=== PATIENT | male | born 1985 | race Caucasian/White ===

== ENCOUNTER 2023-09-07 08:30 | Inpatient (IN) | payer OTHER ==
[2023-09-07 09:08] VITALS: BMI 25.7
[2023-09-07] MEDS ORDERED: DICYCLOMINE HCL 10 MG CAPSULE PO PRN (09:56)
[2023-09-07] MEDS ORDERED: MAG HYDROX/AL HYDROX/SIMETH 30 ML UNIT-DOSE CUP PO PRN (09:56)
[2023-09-07] MEDS ORDERED: NALOXONE HCL (KLOXXADO) 8 MG SPRAY NS PRN (09:56)
[2023-09-07] MEDS ORDERED: BENZONATATE 200 MG CAPSULE PO PRN (09:56)
[2023-09-07] MEDS ORDERED: ONDANSETRON *ODT* 4 MG TABLET SL PRN (09:56)
[2023-09-07] MEDS ORDERED: NALOXONE HCL 0.4 MG/ML VIAL IM PRN (09:56)
[2023-09-07] MEDS ORDERED: BENZOCAINE/MENTHOL (CHLORASEPTIC ) LOZENGE MM PRN (09:56)
[2023-09-07] MEDS ORDERED: ACETAMINOPHEN 325 MG TABLET (FP) PO PRN (09:56)
[2023-09-07] MEDS ORDERED: POLYETHYLENE GLYCOL (HEALTHYLAX) 3350 17 GM PACKET PO PRN (09:56)
[2023-09-07] MEDS ORDERED: guaiFENesin 600 MG TABLET.ER (FP) PO PRN (09:56)
[2023-09-07] MEDS ORDERED: MAGNESIUM HYDROX 2400MG/30ML ORAL SUSPENSION 30 ML CUP PO PRN (09:56)
[2023-09-07] MEDS ORDERED: IBUPROFEN 400 MG TABLET (FP) PO PRN (09:56)
[2023-09-07] MEDS ORDERED: PRENATAL VITAMINS W/ FOLIC ACID TABLET (FP) PO ONE (10:28)
[2023-09-07] MEDS ORDERED: methaDONE HCL 10 MG TABLET (FOR DETOX USE ONLY) ONE (10:28)
[2023-09-07] MEDS ORDERED: NICOTINE 21 MG/24 HOURS TOPICAL PATCH ONE (10:28)
[2023-09-07] MEDS: PRENATAL VITAMINS W/ FOLIC ACID TABLET (FP) PO SCH (10:34)
[2023-09-07] MEDS: cloNIDine HCL 0.1 MG TABLET PO SCH (10:34)
[2023-09-07] MEDS: NICOTINE 21 MG/24 HOURS TOPICAL PATCH TD SCH (10:34)
[2023-09-07] MEDS: methaDONE HCL 10 MG TABLET (FOR DETOX USE ONLY) PO ONE (10:34)
[2023-09-07] MEDS: IBUPROFEN 600 MG TABLET (FP) PO PRN (14:48)
[2023-09-07] MEDS: METHOCARBAMOL 500 MG TABLET PO PRN (14:48)
[2023-09-07] MEDS: BISMUTH SUBSALICYLATE 262 MG/15 ML BTL PO PRN (14:50)
[2023-09-07 15:38] LABS: HIV INTERPRETATION NEGATIVE (NEGATIVE)
[2023-09-07] MEDS: LOPERAMIDE HCL 2 MG CAPSULE PO PRN (17:25)
[2023-09-07] MEDS: hydrOXYzine PAMOATE 25 MG CAPSULE (FP) PO PRN (17:25)
[2023-09-07] MEDS: NICOTINE POLACRILEX 4 MG LOZENGE BC PRN (17:26)
[2023-09-07] MEDS: BUPRENORPHINE/NALOXONE 0.5 MG/0.125 MG FILM SL ONE (22:24)
[2023-09-07] MEDS: THIAMINE 100 MG TABLET PO SCH (22:25)
[2023-09-07] MEDS: MELATONIN 5 MG TABLETS PO SCH (22:25)
[2023-09-08] MEDS: BUPRENORPHINE/NALOXONE 0.5 MG/0.125 MG FILM SL SCH (09:31)
[2023-09-08] MEDS: NICOTINE POLACRILEX 2 MG LOZENGE BC PRN (09:32)
[2023-09-08 11:57] LABS: HEMATOCRIT 36.5 % (35.4-49); HEMOGLOBIN 12.2 GM/dL (11.7-16.9); MCH 28.7 pg (25.7-33.7); MCHC 33.3 g/dl (32.0-35.9); MEAN PLT VOLUME 8.3 fl (7.5-11.1); PLATELET COUNT 292 10^3/uL (134-434); RBC 4.24 M/mm3 (4.00-5.60); RDW 14.4 % (11.9-15.9); WHITE BLOOD COUNT 7.5 K/mm3 (4.0-10.0)
[2023-09-08 12:00] LABS: POTASSIUM 3.9 mmol/L (3.5-5.1)
[2023-09-08 12:09] LABS: ALBUMIN 3.8 g/dl (3.4-5.0); BLOOD UREA NITROGEN 26.1 mg/dL (7-18)
[2023-09-08 12:10] LABS: CALCIUM 9.7 mg/dL (8.5-10.1)
[2023-09-08 12:13] LABS: CREATININE 1.2 mg/dL (0.55-1.3)
[2023-09-08 12:14] LABS: BILIRUBIN,TOTAL 0.4 mg/dL (0.2-1)
[2023-09-09] MEDS: methaDONE HCL 10 MG TABLET (FOR DETOX USE ONLY) PO ONE (09:50)
[2023-09-09] MEDS: BUPRENORPHINE/NALOXONE 2 MG/0.5 MG FILM PACKET SL SCH (09:51)
[2023-09-10] MEDS: BUPRENORPHINE/NALOXONE 4 MG/1 MG FILM PACKET SL SCH (09:08)
[2023-09-10] MEDS: MELATONIN 5 MG TABLETS PO SCH (22:31)
[2023-09-11 08:53] VITALS: BP 151/72; PULSE 62; RESP 16; TEMP 97.1
[2023-09-11] MEDS: methaDONE HCL 10 MG TABLET (FOR DETOX USE ONLY) PO ONE (09:16)
[2023-09-11] MEDS: BUPRENORPHINE/NALOXONE 8 MG/2 MG FILM PACKET SL SCH (09:17)
[2023-09-11] MEDS ORDERED: SUVOREXANT 10 MG TABLET PO PRN (22:00)
[2023-09-12] MEDS ORDERED: BUPRENORPHINE/NALOXONE 8 MG/2 MG FILM PACKET SL SCH (10:00)
== END 2023-09-11 09:40 | disposition home or self-care (01) | DRG 773 ==
LOC: YASAS 08:30 → Y3N 10:47 → Y6N 16:02
PROVIDERS: ADMIT Allergy & Immunology; ATTEND Surgery
PROC: HZ2ZZZZ Detoxification Services for Substance Abuse Treatment (ICD-10-PCS; principal; 2023-09-07)
DX: F11.23 Opioid dependence with withdrawal (principal); F14.20 Cocaine dependence, uncomplicated; F13.10 Sedative, hypnotic or anxiolytic abuse, uncomplicated; F17.210 Nicotine dependence, cigarettes, uncomplicated; F41.1 Generalized anxiety disorder; F43.10 Post-traumatic stress disorder, unspecified; E86.0 Dehydration; R73.03 Prediabetes
CPT/HCPCS: 36415; 80053; 80061; 80305; 80307; 83036; 85027; 86780; 87389; 93005; 93010